=== PATIENT | female | born 1970 | race Caucasian/White ===

== ENCOUNTER → 2021-10-31 | Outpatient (CLI) | payer BC ==
[2021-10-31 15:05] LABS: HEMOGLOBIN 13.7 gm/dl (12.3-15.3); RED BLOOD COUNT 5.04 M/UL (4.00-5.10); WHITE BLOOD COUNT 9.6 K/UL (4.5-11.0)
[2021-10-31 15:28] LABS: BUN/CREATININE RATIO 21 (0-10)
[2021-11-01 07:10] LABS: VITAMIN D, 25-HYDROXY 48.3 ng/mL (30.0-100.0)
[2021-11-01 08:22] LABS: PREALBUMIN 27 mg/dL (12-34)
== END ==
LOC: LAB 14:35
PROVIDERS: Nurse Practitioner Family
DX: R63.5 Abnormal weight gain (principal); K21.9 Gastro-esophageal reflux disease without esophagitis; I10 Essential (primary) hypertension; E55.9 Vitamin D deficiency, unspecified; G47.33 Obstructive sleep apnea (adult) (pediatric); R73.03 Prediabetes
CPT/HCPCS: 36415; 80053; 80061; 82728; 82746; 83036; 83540; 83735; 83921; 83970; 84100; 84134; 84425; 84443; 84446; 84590; 85027